=== PATIENT | male | born 1990 | race Caucasian/White ===

== ENCOUNTER 2023-10-17 15:36 | Emergency (ER) | payer MEDICAID, OTHER ==
[~2023-10-17] VITALS: Ht 180.3 cm; Wt 66.4 kg
[2023-10-17 15:38] VITALS: BP 138/74; PULSE 105; RESP 16; TEMP 98.1; O2SAT 99
[2023-10-17] MEDS: LORazepam 2 mg/ml vial IV ONE ×2 (16:01→17:37)
[2023-10-17] MEDS: normal saline 1000ml 1,000 ML IV ONE ×2 (16:02)
[2023-10-17 16:36] LABS: BASOPHILS % (AUTO) 0.4 % (0-1); EOSINOPHILS % (AUTO) 0.2 % (0-6); HEMATOCRIT 51.4 % (42.0-52.0); HEMOGLOBIN 17.8 g/dl (14.0-17.9); LYMPHOCYTES # (AUTO) 2.2 X10'3 (1.1-4.8); LYMPHOCYTES % (AUTO) 16.6 % (21-51); MEAN CORPUSCULAR HEMOGLOBIN 31.7 PG (27.0-31.0); MEAN CORPUSCULAR HGB CONC 34.6 g/dL (33.0-36.5); MEAN CORPUSCULAR VOLUME 91.5 FL (78-98); MEAN PLATELET VOLUME 6.9 FL (7.4-10.4); MONOCYTES # (AUTO) 0.8 X10'3 (0-0.9); MONOCYTES % (AUTO) 5.6 % (2-12); NEUTROPHILS # (AUTO) 10.3 X10'3 (1.8-7.7); NEUTROPHILS % (AUTO) 77.2 % (42-75); PLATELET COUNT 348 X10'3 (140-440); RED BLOOD COUNT 5.62 X10'6 (4.70-6.10); RED CELL DISTRIBUTION WIDTH 13.3 % (11.5-14.5); WHITE BLOOD COUNT 13.4 X10'3 (4.5-11.0)
[2023-10-17 17:07] LABS: ALBUMIN 4.4 G/DL (3.4-5.0); ANION GAP 15 (8-16); BLOOD UREA NITROGEN 9 MG/DL (7-18); BUN/CREATININE RATIO 11.3 (10.0-20.0); CALCIUM 9.4 MG/DL (8.5-10.1); CHLORIDE 103 MMOL/L (99-107); CREATINE KINASE 325 U/L (39-308); GLUCOSE 92 MG/DL (70-104); POTASSIUM 4.1 MMOL/L (3.5-5.1); PRO BRAIN NATRIURETIC PEPTIDE < 30 PG/ML (0-125); SODIUM 139 MMOL/L (135-145); eCRCL 126 ML/MIN; eGFR > 90 ML/MIN
[2023-10-17] MEDS: normal saline 1000ML IV soln IVB ONE (17:37)
[2023-10-17 18:00] LABS: ETHANOL < 10 MG/DL (<10); MAGNESIUM 1.9 MG/DL (1.5-2.4)
[2023-10-17] MEDS: nicotine 21mg patch - 24 hr TD ONE (19:06)
== END 2023-10-17 20:30 | disposition short-term general hospital (02) ==
LOC: ER 15:37
DX: T14.90XA Injury, unspecified, initial encounter (principal); R25.3 Fasciculation; W86.8XXA Exposure to other electric current, initial encounter; Y93.89 Activity, other specified; Y92.89 Other specified places as the place of occurrence of the external cause; Y99.8 Other external cause status
CPT/HCPCS: 36415; 71045; 73060; 73090; 73120; 80048; 80320; 82550; 83735; 83880; 84484; 85025; 93005; 96361; 96374; 99291; J2060; J7030